=== PATIENT | male | born 2000 | race Caucasian/White ===

== ENCOUNTER 2020-11-24 12:25 | Outpatient (REF) | payer MEDICAID, SELFPAY ==
[2020-11-24 12:50] LABS: COVID-19 Test Negative (Negative)
== END 2020-11-24 12:26 | disposition home or self-care (01) ==
LOC: HO.LAB 12:25
PROVIDERS: Visit Provider Internal Medicine
DX: Z20.822 Contact with and (suspected) exposure to COVID-19 (principal)
CPT/HCPCS: 36415; 87635; C9803

== ENCOUNTER → 2022-05-15 09:12 | Outpatient (BNVA) | payer MEDICAID, SELFPAY | PROVIDERS: PCP Internal Medicine; Referring Provider Internal Medicine; Visit Provider Internal Medicine | DX: I45.10 Unspecified right bundle-branch block (principal) | CPT/HCPCS: 93005; 99202 ==

== ENCOUNTER → 2022-06-18 10:18 | Outpatient (REF) | payer MEDICAID, SELFPAY ==
--- NOTE | 2022-06-18 10:21 | CA_ITS ---
Transthoracic Echocardiogram Patient (Last, First, Middle): Rachid Eid, Gender: Male Date of : 2000 Age: 21 Procedure Date: 06/18/2022 Procedure Type: Transthoracic Echocardiogram Location: OP Height: 167.64 cm Weight: 77.11 kg BSA: 1.87 m2 Heart Rate: 80 bpm BP: 110 / 60 mmHg Pillowcase Cleaner: SB Referring MD: Erasto Cruz MD Symptoms: I45.10 - Unspecified right bundle-branch block Study Quality: Adequate ECG Rhythm: Sinus Conclusions: - The left ventricular systolic function is normal. The calculated ejection fraction is 57% by biplane method. - Normal right ventricular cavity size and systolic function. - No obvious valvular pathology seen on this study. Findings Left Ventricle Normal left ventricular cavity size. There is normal left ventricular wall thickness. The left ventricular systolic function is normal. The calculated ejection fraction is 57% by biplane method. There is no evidence of regional wall motion abnormalities. Diastolic function is normal for age. Right Ventricle Normal right ventricular cavity size and systolic function. Atria Both atria are normal in size. Aortic Valve There is a normal trileaflet aortic valve. There is no aortic valve stenosis. There is no aortic valve regurgitation. Mitral Valve The mitral valve appears normal. There is trace mitral valve regurgitation. There is no mitral valve stenosis. Pulmonic Valve The pulmonic valve is likely normal. Tricuspid Valve Normal tricuspid valve structure. There is trace tricuspid valve regurgitation. There is no evidence of pulmonary hypertension. Great Vessels The asc aorta is normal in size. Venous The inferior vena cava is normal in size and collapses greater than 50% with inspiration. Pericardium/Pleural There is no evidence of pericardial effusion. Prior Study Comparison No prior study available for comparison. Recommendations, Care & Conclusions No obvious valvular pathology seen on this study. Measurements 2D Linear Measurements IVSd: 0.86 0.6-0.9/0.6-1.0 cm LVIDd: 5.20 3.9-5.3/4.2-5.9 cm LVIDd Index: 2.78 2.4-3.2/2.2-3.1 cm/m2 LVIDs: 3.85 2.0-3.6 cm LVPWd: 0.70 0.7-1.1 cm LA Diam: 2.70 2.7-3.8/3.0-4.0 cm LAIDs Index: 1.44 1.5-2.3 cm/m2 LV Mass: 175.04 67-162/88-224 g LV Mass Index: 93.60 43-95/49-115 g/m2 LVOT Diam: 2.30 3.0+(-)1.3 cm 2D Systolic Function EF 4C: 58.30 >55% EF 2C: 59.70 >55% EF BiP: 57.10 >55% Mitral Valve MV Pk E: 0.73 MV PK A: 0.58 MV Decel Time: 179.00 E/A: 1.30 E'Lateral: 14.80 E'Medial: 10.20 E/E' Med: 7.10 E/E' Lat: 4.90 PHT: 52.00 MVA PHT: 4.23 Decel Nelson: 4.07 Aortic Valve AoV Pk Terrence: 1.03 AoV Pk Grad: 4.00 LAQUITA: 3.83 LVOT LVOT Pk Terrence: 0.95 LVOT Mn Terrence: 0.67 LVOT VTI: 0.17 LVOT Pk Grad: 4.00 LVOT Mn Grad: 2.00 LVOT Diam: 2.30 LVOT Area: 4.15 Diastolic Function MV Pk E: 0.73 MV Pk A: 0.58 E/A: 1.30 E'Medial: 10.20 E/E' Med: 7.10 E' Laterial: 14.80 E/E' Lat: 4.90 Right Ventricle TAPSE (mm): 23.40 TVS' Terrence: 20.10 Tricuspid Valve TR Pk Terrence: 2.29 TR Pk Grad: 21.00 RA Press: 3.00 RVSP: 24.00 Great Vessels Aorta Sinus of Valsalva: 3.30 2.0-3.5 cm Ao Asc: 2.70 2.1-3.4 cm Pulmonary Veins Pulm Vein S/D 0.70 Pulmonary Valve PV Pk Terrence: 0.84 Peak PV Grad: 3.00 Updated in Other Vendor System with Status of Final Erasto Cruz MD electronically signed on 06/20/2022 11:15:27 AM with status of Final
== END ==
LOC: HO.CARD 10:18
PROVIDERS: Visit Provider Internal Medicine
DX: I45.10 Unspecified right bundle-branch block (principal)
CPT/HCPCS: 93306